=== PATIENT | female | born 1960 | race Caucasian/White ===

== ENCOUNTER 2024-04-05 17:46 | Emergency (ER) | payer OTHER ==
--- NOTE | 2024-04-05 18:59 | RAD REPORT ---
Exam:Forearm Left Clinical history: Left forearm pain Findings: Moderately displaced comminuted fracture intra-articular fracture distal radius. Ulnar styloid fracture
--- NOTE | 2024-04-05 19:00 | RAD REPORT ---
Exam:Hand Left 3 View CLINICAL HISTORY: Left hand pain FINDINGS: Moderately displaced comminuted fracture intra-articular fracture distal radius. Ulnar styloid fracture No dislocation
--- NOTE | 2024-04-05 19:02 | RAD REPORT ---
Exam:Knee Left 3 View HISTORY: Left knee pain FINDINGS: No fracture or dislocation seen
--- NOTE | 2024-04-05 19:53 | EDPHYS ---
Physician Documentation [facility] Name: Jennifer Cheung Age: 63 yrs Sex: Female : 1960 Arrival Date: 04/05/2024 Time: 17:46 Bed Treatment Private MD: ED Physician Ted Olson HPI: 04/05 19:47 This 63 yrs old Female presents to ER via Ambulatory with complaints of Arm Injury - bo1 left. 19:47 The patient or guardian complains of injury, pain, Following a fall after missing a bo1 step. The complaints affect the left wrist. Context: The problem was sustained at home. Onset: The symptoms/episode began/occurred today. Modifying factors: the symptoms are aggravated by movement. Associated signs and symptoms: The patient has no apparent associated signs or symptoms. No head injury or LOC. Historical: - Allergies: 18:02 No Known Allergies; cm10 - PMHx: 18:02 Diabetes mellitus; Hypertensive disorder; Depressive disorder; Hypercholesterolemia; cm10 - Immunization history:: Adult Immunizations. - Infectious Disease History:: Denies. - Social history:: Smoking status: Patient denies any tobacco usage or history of. ROS: 19:48 Constitutional: Negative for fever, chills, and weight loss bo1 19:48 MS/extremity: Positive for injury or acute deformity, of the left arm and left wrist, 19:48 Skin: Positive for swelling, of the left arm, At the distal radius, Negative for rash, Exam: 19:50 Constitutional: This is a well developed, well nourished patient who is awake, alert, bo1 and in no acute distress. 19:50 Constitutional: The patient appears alert, awake, comfortable, non-toxic, 19:50 Musculoskeletal/extremity: Extremities: grossly normal except: noted in the left arm: Distal left wrist is swollen at the radial aspect with no loss of angle anatomically. Intact radial pulse along with neuro checks. Hand and digits of the left UE are normal. No laceration or abrasions, Vital Signs: 18:01 BP 137 / 77; Pulse 77; Resp 16; Temp 97.6(TE); Pulse Ox 98% on R/A; Weight 87.09 kg; cm10 Height 5 ft. 4 in. ; Pain 7/10; 20:37 BP 132 / 75; Pulse 74; Resp 17 S; Pulse Ox 98% on R/A; ha1 18:01 Body Mass Index 32.96 (87.09 kg, 162.56 cm) cm10 18:01 Pain Scale: Adult cm10 MDM: 18:16 Medical Screening Exam initiated bo1 19:49 Differential diagnosis: closed fracture, Closed injury to the wrist. Data reviewed: bo1 vital signs, radiologic studies, plain films. ED course: Pt to be managed as OP with F/U with orthopedics. 04/05 18:03 Order name: Forearm Left XRAY; Complete Time: 19:18 cm10 04/05 18:03 Order name: Hand Left 3 View XRAY; Complete Time: 19:18 cm10 04/05 18:03 Order name: Knee Left 3 View XRAY; Complete Time: 19:18 cm10 04/05 19:29 Order name: Splint - Volar Wrist Splint; Complete Time: 20:33 bo1 04/05 19:29 Order name: Arm-Sling; Complete Time: 20:33 bo1 04/05 19:29 Order name: Arm-Sling; Complete Time: 20:33 bo1 Administered Medications: 20:18 Drug: traMADol PO 100 mg PO once Route: PO; ha1 20:33 Follow up: Response: No adverse reaction; Marked relief of symptoms; Pain is decreased; ha1 RASS: Alert and Calm (0) Disposition Summary: 04/05/24 19:53 Discharge Ordered Notes: Location: Home bo1 Problem: new bo1 Symptoms: are unchanged bo1 Condition: Stable bo1 Diagnosis - Fracture of lower end of radius bo1 - Fall on same level, unspecified bo1 Followup: bo1 - With: Rik Tate MD - When: Upon discharge from the Emergency Department - Reason: Recheck today's complaints, Continuance of care Discharge Instructions: - Discharge Summary Sheet bo1 - Radial Fracture bo1 - Cast or Splint Care, Adult, [id number] bo1 Forms: - Medication Reconciliation Form bo1 - Antibiotic Education bo1 - Prescription Opioid Use bo1 - Patient Portal Instructions bo1 - Leadership Thank You Letter bo1 Prescriptions: - Tramadol 50 mg Oral tablet - take 1 tablet ORAL route every 8 hours as needed; 20 tablet; Refills: 0, bo1 Product Selection Permitted Signatures: Dispatcher [employer] EDMS Shahnaz Bundy RN RN ha1 Denise Gutierrez, RN RN cm10 Ted Olson MD MD bo1 Corrections: (The following items were deleted from the chart) 18:04 18:04 Knee Left 3 View+RAD.RAD.BRZ ordered. EDMS EDMS
--- NOTE | 2024-04-05 19:53 | ER ---
Nurse's Notes [facility] Name: Jennifer Cheung Age: 63 yrs Sex: Female : 1960 Arrival Date: 04/05/2024 Time: 17:46 Bed Treatment Private MD: Diagnosis: Fracture of lower end of radius;Fall on same level, unspecified Presentation: 04/05 18:01 Chief complaint: Patient states: LEFT WRIST PAIN AND LEFT KNEE PAIN S/P FALL. PT STATES cm10 THAT SHE MISSED A STEP AND FELL TODAY AT 1400. DIDN'T HIT HEAD, NO LOC. Coronavirus screen: Client denies travel out of the [place] in the last 14 days. Ebola Screen: Patient denies travel to an Ebola-affected area in the 21 days before illness onset. No symptoms or risks identified at this time. Initial Sepsis Screen: Does the patient meet any 2 criteria? No. Patient's initial sepsis screen is negative. Does the patient have a suspected source of infection? No. Patient's initial sepsis screen is negative. Risk Assessment: Do you want to hurt yourself or someone else? Patient reports no desire to harm self or others. Onset of symptoms was April 05, 2024. 18:01 Method Of Arrival: Ambulatory cm10 18:01 Acuity: MOISES 4 cm10 Triage Assessment: 18:02 General: Appears in no apparent distress. uncomfortable, Behavior is calm, cooperative. cm10 Neuro: No deficits noted. Level of Consciousness is awake, alert, obeys commands, Oriented to person, place, time, situation, Appropriate for age. Respiratory: No deficits noted. Airway is patent Respiratory effort is even, unlabored, Respiratory pattern is regular, symmetrical. 20:41 Injury Description: Deformity sustained to left wrist. ha1 Historical: - Allergies: 18:02 No Known Allergies; cm10 - PMHx: 18:02 Diabetes mellitus; Hypertensive disorder; Depressive disorder; Hypercholesterolemia; cm10 - Immunization history:: Adult Immunizations. - Infectious Disease History:: Denies. - Social history:: Smoking status: Patient denies any tobacco usage or history of. Screenin:38 [facility] ED Fall Risk Assessment (Adult) History of falling in the last 3 months, ha1 including since admission No falls in past 3 months (0 pts) Confusion or Disorientation No (0 pts) Intoxicated or Sedated No (0 pts) Impaired Gait No (0 pts) Mobility Assist Device Used No (0 pt) Altered Elimination No (0 pt) Score/Fall Risk Level 0 - 2 = Low Risk Oriented to surroundings, Maintained a safe environment, Educated pt \T\ family on fall prevention, incl call for assistance when getting out of bed, Hourly rounding (assess needs \T\ fall precautionary measures) done. Abuse screen: Denies threats or abuse. Denies injuries from another. Nutritional screening: No deficits noted. Tuberculosis screening: No symptoms or risk factors identified. Assessment: 19:32 General: Appears uncomfortable, Behavior is calm, cooperative. Pain: Complains of pain ha1 in left wrist. Neuro: Level of Consciousness is awake, alert, obeys commands, Oriented to person, place, time, situation. Cardiovascular: Patient's skin is warm and dry. Respiratory: Airway is patent Respiratory effort is even, unlabored, Respiratory pattern is regular, symmetrical. GI: Abdomen is round non-distended. Derm: Skin is pink, warm \T\ dry. Musculoskeletal: Circulation, motion, and sensation intact. Range of motion: intact in all extremities. 20:34 Reassessment: Patient and/or family updated on plan of care and expected duration. Pain ha1 level reassessed. Patient is alert, oriented x 3, equal unlabored respirations, skin warm/dry/pink. Patient states feeling better. Patient states symptoms have improved. Vital Signs: 18:01 BP 137 / 77; Pulse 77; Resp 16; Temp 97.6(TE); Pulse Ox 98% on R/A; Weight 87.09 kg; cm10 Height 5 ft. 4 in. ; Pain 7/10; 20:37 BP 132 / 75; Pulse 74; Resp 17 S; Pulse Ox 98% on R/A; ha1 18:01 Body Mass Index 32.96 (87.09 kg, 162.56 cm) cm10 18:01 Pain Scale: Adult cm10 ED Course: 17:48 Patient arrived in ED. im 18:02 Triage completed. cm10 18:02 Arm band placed on right wrist. Patient placed in waiting room. X-ray ordered. cm10 18:16 Ted Olson MD is Attending Physician. bo1 18:49 Forearm Left XRAY In Process Unspecified. EDMS 18:49 Hand Left 3 View XRAY In Process Unspecified. EDMS 18:49 Knee Left 3 View XRAY In Process Unspecified. EDMS 19:30 Patient has correct armband on for positive identification. Bed in low position. Call ha1 light in reach. Side rails up X 1. Adult w/ patient. 19:52 Rik Tate MD is Referral Physician. bo1 20:15 Orthoglass splint: Volar splint applied on left arm Sling applied to left arm. oe 20:33 Shahnaz Bundy, RN is Primary Nurse. ha1 20:39 No provider procedures requiring assistance completed. ha1 20:40 Provided Education on: Following up with orthopedic . ha1 20:40 Patient did not have IV access during this emergency room visit. ha1 Administered Medications: 20:18 Drug: traMADol PO 100 mg PO once Route: PO; ha1 20:33 Follow up: Response: No adverse reaction; Marked relief of symptoms; Pain is decreased; ha1 RASS: Alert and Calm (0) Medication: 20:40 VIS not applicable for this client. ha1 Outcome: 19:53 Discharge ordered by . bo1 20:39 Discharged to home ambulatory, with family, ha1 20:39 Condition: stable 20:39 Discharge instructions given to patient, family, Instructed on discharge instructions, follow up and referral plans. medication usage, Prescriptions given X 1, 20:41 Patient left the ED. ha1 Signatures: Dispatcher [employer] EDAL Adriano Hankins Heidy, RN RN ha1 Nancy Ferreira Clarissa, RN RN cm10 Ted Olson MD MD bo1
[2024-04-05] MEDS ORDERED: TRAMADOL HCL 50 MG TAB ONE (20:24)
[2024-04-05 21:26] VITALS: TEMP 97.6; O2SAT 98
[2024-04-05 21:27] VITALS: BP 132/75
== END 2024-04-05 20:41 | disposition home or self-care (01) ==
LOC: ER 17:46
PROC: 2W3DX1Z Immobilization of Left Lower Arm using Splint (ICD-10-PCS; principal; 2024-04-05)
DX: S52.502A Unspecified fracture of the lower end of left radius, initial encounter for closed fracture (principal); W18.30XA Fall on same level, unspecified, initial encounter
CPT/HCPCS: 99284

== ENCOUNTER 2024-04-14 06:03 | Day surgery (SDC) | payer OTHER ==
[2024-04-10 11:11] LABS: Absolute Eosinophils 0.3 K/uL (0-0.5); Absolute Lymphocytes (CBC) 1.9 K/uL (0.7-4.9); Absolute Monocytes 0.5 K/uL (0.1-1.3); Absolute Neutrophil 4.1 K/uL (1.8-8.0); Basophils % 0.7 % (0-1.3); Eosinophils % 3.7 % (0-4.4); Hematocrit 41.2 % (36.0-45.0); Hemoglobin 13.8 g/dL (12.0-15.0); Lymphocytes % 27.7 % (15.3-44.8); MCHC 33.4 g/dL (32.0-36.0); MCV 89.8 fL (80-100); MPV 8.9 fL (7.6-11.3); Neutrophils % 60.9 % (41.7-73.7); Nucleated Red Blood Cells % 0.1 % (0-0); Platelets 226 thou/uL (152-406); RBC Red Blood Cell Count 4.58 M/uL (3.86-4.86); Red Cell Distribution Width 14.3 % (12.1-15.2)
[2024-04-10 11:26] LABS: Anion Gap 8.2 mEq/L (5.0-15.0); Potassium 4.2 mEq/L (3.5-5.1)
--- NOTE | 2024-04-13 11:10 | EKG ---
Test Date: 2024-04-10 Test Time: 12:04:30 Personnel Research Psychologist: SHA MEASUREMENT RESULTS: Intervals: Rate: 63 IN: 174 QRSD: 100 QT: 466 QTc: 476 [place]: P: 40 IN: 174 QRS: -15 T: 53 INTERPRETIVE STATEMENTS: Normal sinus rhythm Incomplete right bundle branch block Nonspecific T wave abnormality Prolonged QT Abnormal ECG Compared to ECG 03/21/2015 14:03:48 No significant changes Electronically Signed On 04-13-24 11:07:44 CHASER APPRENTICE by Lucho Bragg
[2024-04-14] MEDS ORDERED: CEFAZOLIN SODIUM 1 GM/VIAL ONE (06:28)
[2024-04-14] MEDS ORDERED: EPINEPHRINE 1 MG/ML VIAL ONE (06:29)
[2024-04-14] MEDS ORDERED: LIDOCAINE 1% MPF 5 ML VIAL ONE (06:29)
[2024-04-14] MEDS ORDERED: FENTANYL CITR 100 MCG/2 ML ONE ×2 (06:29→08:08)
[2024-04-14] MEDS ORDERED: dexAMETHasone 10 MG/ML VIAL ONE ×2 (06:29→08:07)
[2024-04-14] MEDS ORDERED: BUPIVACAINE 0.5% PF 10 ML VIAL ONE (06:30)
[2024-04-14] MEDS ORDERED: MIDAZOLAM HCL 2 MG/2 ML INJ ONE (06:30)
[2024-04-14] MEDS: NA CHLORIDE 0.9% 1,000 ML ONE (06:40)
[2024-04-14] MEDS ORDERED: KETOROLAC 30 MG/ML INJ ONE (08:07)
[2024-04-14] MEDS ORDERED: ONDANSETRON 4 MG/2 ML VIAL ONE (08:07)
[2024-04-14] MEDS ORDERED: propofoL 200 MG/20 ML VIAL IV ONE (08:08)
[2024-04-14] MEDS ORDERED: LIDOCAINE 2% MPF 5 ML VIAL ONE (08:08)
[2024-04-14] MEDS ORDERED: Ringers Lactate 0 ML IV ONE (08:55)
--- NOTE | 2024-04-14 09:37 | RAD REPORT ---
EXAMINATION: XR LEFT WRIST CLINICAL INDICATION: ORIF dilute Fluoroscopy time 1.7 minutes.
[2024-04-14] MEDS ORDERED: 0.9 % SODIUM CHLORIDE 1,000 ML IV ONE (09:39)
--- NOTE | 2024-04-14 09:50 | OP ---
Date of Procedure: 04/14/2024 Surgeon: Alexander Silverio MD Preoperative Diagnosis: Left distal radius fracture with 3 intra-articular fragments. Postoperative Diagnosis: Left distal radius fracture with 3 intra-articular fragments. Procedure: Left distal radius open reduction and internal fixation using the Acumed 2 volar radius p lating set. Estimated Blood Loss: Less than 10 cc. Complications: There were no complications. Indications For Operation: Ms. Cheung is a 63-year-old female who unfortunately fell injuring her le ft upper extremity. She had x-rays done at an outside facility and arrived to see me in a splint. O n physical examination, there was no sign of an open injury. She was neurovascularly intact. Review of x-rays revealed a multi-fragment intra-articular distal radius fracture. It did appear that she had a -punch type fracture with loss of support of the carpus. Risks, benefits, and alternatives of different methods of treating this were discussed with the patient, and opted for open reduction a nd internal fixation, and risks associated with this specifically were discussed. She states she und erstands things as presented and wishes to proceed. Description Of Procedure: The patient was taken to the operating room, placed in the supine position . General anesthesia was easily obtained by the anesthesia staff. She had previously had a block pe rformed on her left upper extremity. Following this, the arm was then elevated, but not exsanguinate d. The tourniquet was raised. A standard volar approach of Zackery was then taken down carefully thro ugh skin and soft tissue. Meticulous hemostasis is being maintained using Bovie electrocautery. Thi s leads down to the flexor carpi radialis, which was exposed and used as a landmark. It was then tra nsferred gently radialward and the underlying sheath was exploited. The muscle belly and tendon of t he flexor pollicis longus were encountered, and shifted carefully ulnarward to protect the median ner ve, exposing the pronator quadratus. The pronator quadratus was then divided at its midsubstance and gently lifted from the volar surface of the radius using a wooden handle elevator. This reveals the fracture site, which appears to be more or less transverse, but there does appear to be a lunate por tion. After this, the C-arm was brought in and correcting using standard reduction techniques, it do es appear to elevate the -punch fragment, which appears to be somewhat connected to the volar piec e and carpus. The plate was then provisionally applied, where it gives the best coverage of the renato te fossa and still contacts the volar surface of the radius. This does cause the most proximal screw hole to be a little bit more ulnar, but it was felt that this was the most appropriate spot for the plate and the remaining locking pegs were placed, which appeared to be extra-articular and in good po sition. An additional screw was then placed in the most distal screw hole. We did not place a screw in the most proximal as this would probably be unicortical and may cause undue stress riser, and als o felt that the majority of the displacement was in the axial direction, and I do not feel that the p late would be able to subside because of the other 2 screws. The wound was then irrigated and the sk in was closed using interrupted nylon suture. She was then placed in a very well-padded sterile dres sing as well as a volar splint, awakened, and taken to recovery room in good condition. There were n o complications. SE/MODL Voice ID: [id number] Report ID: [id number]
[2024-04-14 09:58] VITALS: O2SAT 97
[2024-04-14 10:58] VITALS: BP 144/81; TEMP 97
== END 2024-04-14 10:47 | disposition home or self-care (01) ==
LOC: OR 06:03
PROVIDERS: ATTEND Orthopaedic Surgery
PROC: 0PSJ04Z Reposition Left Radius with Internal Fixation Device, Open Approach (ICD-10-PCS; principal; 2024-04-14 08:15)
DX: S52.502A Unspecified fracture of the lower end of left radius, initial encounter for closed fracture (principal)
CPT/HCPCS: 93005; 85025; 80048; 36415; 82947 ×2; 73100; 25609; C1713; J2704; J2003 ×2; J2250; J3010; J1100 ×2; J0171; J7030 ×2; J2405; J0690; C1889; J7120